=== PATIENT | female | born 1980 | race Caucasian/White ===

== ENCOUNTER 2024-10-31 21:56 | Emergency (ER) | payer MEDICARE, MEDICAID, SELFPAY ==
[2024-10-31 22:00] VITALS: BP 145/78; PULSE 98; RESP 17; TEMP 36.6; O2SAT 98; BMI 46.0
[2024-10-31 22:25] LABS: MANUAL DIFF FLAG NO
[2024-10-31 22:26] LABS: Basophils Percent Auto 0.2 % (0-2); Eosinophils Absolute Auto 0.1 X10*3/uL (0.0-0.4); Eosinophils Percent Auto 0.7 % (0-4); Hematocrit 38.5 % (37.0-47.0); Hemoglobin 13.8 g/dl (12.0-16.0); Imm Gran Abs Auto 0.04 X10*3/uL (0.00-0.03); Imm Gran Pct Auto 0.3 % (0.0-0.4); Lymphocytes Absolute Auto 2.1 X10*3/uL (1.2-4.9); Lymphocytes Percent Auto 15.4 % (20-40); Mean Corpuscular HGB Conc 35.8 g/dl (31.0-35.0); Mean Corpuscular Hemoglobin 30.5 pg (27.0-33.0); Mean Platelet Volume 10.2 fL (9.4-12.3); Monocytes Absolute Auto 0.7 X10*3/uL (0.1-1.2); Monocytes Percent Auto 5.2 % (2-11); Neutrophils Absolute Auto 10.8 x10*3/uL (2.0-8.3); Neutrophils Percent Auto 78.2 % (45-73); Platelet Count 251 X10*3/uL (160-400); Red Blood Count 4.53 X10*6/uL (4.20-5.50); White Blood Count 13.9 X10*3/uL (4.8-10.8)
[2024-10-31 22:30] LABS: UPreg QC Valid YES; Urine Pregnancy NEGATIVE (NEGATIVE)
[2024-10-31 22:43] LABS: Appearance Urine Turbid; Glucose Urine UA Negative (Negative); Leukocyte Esterase Urine Moderate (2+) (Negative); Nitrite Urine Positive (Negative); PH 5.5 (5.0-9.0); Specific Gravity - Urine >= 1.030 (1.005-1.025); UMIC TRIGGER UACC YES; Urine Blood Large (3+) (Negative); Urine Ketones Trace mg/dL (Negative); Urine Protein 300 (3+) mg/dL (Neg-Trace)
[2024-10-31 22:44] LABS: Alanine Aminotransferase 17 U/L (0-31); Albumin Level 3.9 g/dL (3.5-5.0); Alkaline Phosphatase 68 U/L (39-117); Anion Gap 11 (12-20); Aspartate Amino Transferase 15 U/L (5-31); Bilirubin Total 1.5 mg/dL (0.0-1.0); Blood Urea Nitrogen 12 mg/dL (9-16); Calcium 8.6 mg/dL (8.4-10.2); Carbon Dioxide 22 mmol/L (22-29); Chloride 109 mmol/L (96-108); Color Urine Dark Yellow; Creatinine Clr Calc Pharmacy 116.7; Estimated Glomerular Filt Rate > 60; Glucose Random 133 mg/dL (60-115); Potassium 3.2 mmol/L (3.3-5.1); Sodium 139 mmol/L (135-145); Total Protein 7.2 g/dL (6.5-8.0)
[2024-10-31 22:45] LABS: Bacteria Urine 4+ (None Seen); RBC Urine >20 /HPF (0-2); UACC Culture Trigger YES; WBC Urine >50 /HPF (0-5)
--- NOTE | 2024-11-01 02:03 | ED_ITS ---
HPI - Abdominal Pain General Chief Complaint: Abdominal Pain Stated Complaint: elevated wbc, abd pain Time Seen by Provider: 11/01/24 01:46 Source: patient Mode of arrival: ambulatory Limitations: no limitations History of Present Illness ED Provider: HPI narrative: Patient is obese complaining of lower abdominal pain for last 2 weeks patient's although spotting since 06/21 after she had delivered wanted to be sure she is not today no fever no chills no flank pain no nausea no vomiting Related Data Previous Rx's ?Medication ?Instructions ?Recorded cefuroxime axetil 500 mg tablet 500 mg PO BID 7 days #14 tabs 11/01/24 Allergies Allergy/AdvReac Type Severity Reaction Status Date / Time No Known Allergies Allergy Verified 10/31/24 22:02 Review of Systems Review of Systems Yes all other systems are reviewed and are negative [facility] Social History Social History Alcohol intake: never Smoked in Last 30 Days: No Use of substances other than those prescribed or required for medical reasons: No Advance Directives: No Advance Directives Information Provided: Yes Do you have a plan to hurt others: No Plan Patient : No Physical Exam ED Vital Signs: Vital Signs - 24 hr 10/31/24 22:00 Temperature 97.8 F Pulse Rate 98 Respiratory Rate 17 Blood Pressure 145/78 H Pulse Oximetry 98 Oxygen Delivery Method Room Air BMI result Body Mass Index 46.0 Appearance: Alert. Oriented X3. No acute distress. ENT: Pharynx normal. Oral Mucosa moist Neck: Normal inspection. Neck supple. CVS: Normal heart rate and rhythm. Pulses normal. Respiratory: No respiratory distress. Equal air entry bilateral, no wheezing/rales/rhonchi Abdomen: Soft and mild suprapubic discomfort. Bowel sounds are present, no mass palpable, no CVA tenderness Skin: Skin warm and dry. Normal skin color. Normal skin turgor. Extremities: No lower extremity edema. No calf tenderness Neuro: Oriented X 3. No motor deficit. Medical Decision Making Medical Decision Making MDM Narrative: Patient with nonspecific lower abdominal pain noticed to have UTI will prescribe cefuroxime she is not Lab Data [facility] Lab Attestation statement: I reviewed the patient's lab results. 10/31/24 22:19 10/31/24 22:19 Labs: Lab Results 10/31/24 Range/Units 22:19 WBC 13.9 H (4.8-10.8) X10*3/uL RBC 4.53 (4.20-5.50) X10*6/uL Hgb 13.8 (12.0-16.0) g/dl Hct 38.5 (37.0-47.0) % MCV 85.0 (80.0-98.0) fL MCH 30.5 (27.0-33.0) pg MCHC 35.8 H (31.0-35.0) g/dl RDW 13.0 (11.0-16.0) % Plt Count 251 (160-400) X10*3/uL MPV 10.2 (9.4-12.3) fL Immature Gran % (Auto) 0.3 (0.0-0.4) % Neut % (Auto) 78.2 H (45-73) % Lymph % (Auto) 15.4 L (20-40) % [place] % (Auto) 5.2 (2-11) % Eos % (Auto) 0.7 (0-4) % Baso % (Auto) 0.2 (0-2) % Lymph # (Auto) 2.1 (1.2-4.9) X10*3/uL [place] # (Auto) 0.7 (0.1-1.2) X10*3/uL Eos # (Auto) 0.1 (0.0-0.4) X10*3/uL Baso # (Auto) 0.0 (0.0-0.2) X10*3/uL Abs Immat Gran (auto) 0.04 H (0.00-0.03) X10*3/uL Absolute Neuts (auto) 10.8 H (2.0-8.3) x10*3/uL Absolute Nucleated RBC 0.000 (0.0-0.012) X10*3/uL Nucleated RBC % (auto) 0.0 (0.0-0.2) /100WBC Sodium 139 (135-145) mmol/L Potassium 3.2 L (3.3-5.1) mmol/L Chloride 109 H (96-108) mmol/L Carbon Dioxide 22 (22-29) mmol/L Anion Gap 11 L (12-20) BUN 12 (9-16) mg/dL Creatinine 0.75 (0.5-1.4) mg/dL Estim Creat Clear Calc 116.7 Estimated GFR > 60 Random Glucose 133 H (60-115) mg/dL Calcium 8.6 (8.4-10.2) mg/dL Total Bilirubin 1.5 H (0.0-1.0) mg/dL AST 15 (5-31) U/L ALT 17 (0-31) U/L Alkaline Phosphatase 68 (39-117) U/L Total Protein 7.2 (6.5-8.0) g/dL Albumin 3.9 (3.5-5.0) g/dL Urine Color Dark Yellow Urine Appearance Turbid Urine pH 5.5 (5.0-9.0) Ur Specific [place] >= 1.030 H (1.005-1.025) Urine Protein 300 (3+) H (Neg-Trace) mg/dL Urine Glucose (UA) Negative (Negative) mg/dL Urine Ketones Trace (Negative) mg/dL Urine Blood Large (3+) H (Negative) Urine Nitrite Positive H (Negative) Ur Leukocyte Esterase Moderate (2+) H (Negative) Urine RBC >20 H (0-2) /HPF Urine WBC >50 H (0-5) /HPF Ur Squamous Epith Cells 11-20 (0-2) /HPF Urine Bacteria 4+ (None Seen) Hyaline Casts 6-10 (0-2) /LPF Urine Test NEGATIVE (NEGATIVE) Medications Administered Discontinued Medications Generic Name Dose Route Start Last Admin Trade Name Lilia PRN Reason Stop Dose Admin Cefuroxime Axetil 500 mg 11/01/24 02:04 11/01/24 02:11 Cefuroxime Axetil 500 Mg Tablet PO 11/01/24 02:05 500 mg ONCE ONE Administration Discharge Plan Discharge Clinical Impression: UTI (urinary tract infection) Patient Disposition: Home, Self-Care Instructions: Urinary Tract Infection in Women (ED) Additional Instructions: Drink plenty of fluids Take antibiotic as prescribed Follow with your PCP if not better Prescriptions: New cefuroxime axetil 500 mg tablet 500 mg PO BID 7 Days Qty: 14 0RF Interventions: ED Discharge Assessment Last Done: 11/01/24 02:18 Discharge Date/Time: 11/01/24 02:19 Print Language: Korean
[2024-11-01] MEDS: cefuroxime axetiL 500 MG TABLET PO (02:11)
[2024-11-01 02:12] VITALS: BP 124/46; PULSE 90; RESP 16; TEMP 37.2; O2SAT 94
[2024-11-01 02:18] VITALS: BP 124/46; PULSE 90; RESP 16; TEMP 37.2; O2SAT 94
== END 2024-11-01 02:19 | disposition home or self-care (01) ==
PROVIDERS: Emergency Provider Internal Medicine; PCP Internal Medicine
DX: N39.0 Urinary tract infection, site not specified (principal); R10.30 Lower abdominal pain, unspecified
CPT/HCPCS: 36415; 80053; 81001; 81025; 85025; 87086; 99283; 99284

== ENCOUNTER 2025-03-22 13:41 | Emergency (ER) | payer MEDICARE, MEDICAID, SELFPAY ==
--- NOTE | ~2025-03-22 | CT_ITS ---
CLINICAL HISTORY: RLQ abd pain rad back. CT abdomen and pelvis with contrast Comparison: None Findings: No consolidation at the lung bases. Unremarkable gallbladder and bladder. Hepatic steatosis. Hepatomegaly, measuring 21.2 cm in craniocaudal dimension. Splenomegaly, measuring 13.2 cm in craniocaudal dimension. No hydronephrosis. There is a stone in the right renal pelvis measuring 9 x 6 x 8 mm. The kidneys are beginning to excrete contrast which limits evaluation for nephrolithiasis. Duplex left kidney. The other solid organs are unremarkable. Small hiatal hernia. No bowel wall thickening or dilation. A normal appendix is visualized measuring up to 5 mm, containing intraluminal air and without periappendiceal stranding. Colonic diverticulosis. No aneurysm. No calcified atherosclerotic disease. No lymphadenopathy. No ascites. No acute osseous abnormality. Impression: 9 mm stone in the right renal pelvis without hydronephrosis. Unremarkable gallbladder. Normal appendix. This document has been electronically signed by: Kelly Kaminski MD on 03/22/2025 17:37:15
[2025-03-22 13:45] VITALS: BP 114/78; PULSE 106; RESP 18; TEMP 36.4; O2SAT 96; BMI 45.7
--- NOTE | 2025-03-22 13:45 | ED_ITS ---
HPI - Abdominal Pain General Chief Complaint: Abdominal Pain Stated Complaint: abd pain, appendix? Time Seen by Provider: 03/22/25 15:47 Source: patient, RN notes reviewed and old records reviewed Mode of arrival: ambulatory History of Present Illness ED Provider: Polina Becker PA-C HPI narrative: 44-year-old female with past medical history obesity, presenting to the ED complaining of right-sided lower back pain radiating to periumbilical region x few days. Reports pain is intermittent with associated nausea and chills. Patient was seen at urgent Care [facility] and sent to ED for further evaluation. Denies vomiting, diarrhea, dysuria/hematuria, vaginal bleeding/discharge, fever Related Data Previous Rx's ?Medication ?Instructions ?Recorded cefuroxime axetil 500 mg tablet 500 mg PO BID 7 days #14 tabs 11/01/24 naproxen 500 mg tablet 500 mg PO BID PRN pain 10 days #20 03/22/25 tabs Allergies Allergy/AdvReac Type Severity Reaction Status Date / Time No Known Allergies Allergy Verified 03/22/25 13:46 Review of Systems Review of Systems Yes all other systems are reviewed and are negative Constitutional: Reports as per HPI [facility] Past Medical History Attestation statement: The following information was validated with the patient. Source: old records reviewed Social History Social History Alcohol intake: never Advance Directives: No Advance Directives Information Provided: No Physical Exam ED Vital Signs: Vital Signs - 24 hr 03/22/25 13:45 03/22/25 16:33 Temperature 97.5 F 100.4 F Pulse Rate 106 H 89 Respiratory Rate 18 20 Blood Pressure 114/78 116/76 Pulse Oximetry 96 97 Oxygen Delivery Method Room Air Room Air BMI result Body Mass Index 45.7 Const General: cooperative, healthy appearing and no acute distress Orientation/consciousness: patient oriented x3 Limitations: no limitations HENMT Head: Yes normal to inspection and Yes atraumatic Ears: hearing grossly normal bilaterally General nose exam: Normal external nose present Face and sinus: Yes normal facial exam Eyes General: appearance normal, both eyes and all related structures EOM: EOMs intact bilaterally Neck Neck: Yes normal visual inspection and Yes no meningeal signs Resp Effort & Inspection: normal respiratory effort and no respiratory distress Cardio Rate: regular rate GI Inspection: Yes normal to inspection Palpation (GI): Soft to palpation, Tenderness to palpation present (GI) in the RLQ; with no rebound tenderness, no guarding and not rigid General: Yes CVA tenderness on the right Back/Spine/Pelvis Back: CVA tenderness Skin Rashes: no rashes Wounds: no wounds Neuro General: patient oriented x3, tone normal and no meningeal signs Cranial nerves: Yes CN's II-XII intact bilaterally Gait exam (Neuro): Normal gait present Extrem General: Yes normal to inspection Course Course Course Narrative: This is an RME performed by Keturah Latham CNP: Additional HPI, ROS, PE not included below will be deferred to primary provider. Patient is a 44-year-old female presents emergency department for evaluation. She states that she has been experiencing mid thoracic back pain for a few days. Since yesterday she began experiencing periumbilical abdominal pain associated chills. She was evaluated at an urgent care prior to arrival, and was advised to come to the ER for further evaluation. Plan: Serum labs, urinalysis -1603--leukocytosis of 14.0. T bili mildly elevated to 1.7 (elevated priors). CRP mildly elevated >> lactic/blood cultures ordered > no evidence of organ dysfunction at this time -1720--lactic acid WNL. UA negative / not infected -1748-- CT abdomen pelvis w IV con Impression: 9 mm stone in the right renal pelvis without hydronephrosis. Unremarkable gallbladder. Normal appendix > on re-evaluation patient reports symptomatic improvement, denies any abdominal pain at present. CT results discussed, discussed needed close follow up with Urology. Discussed strict return precautions including persistent/worsening pain, gross hematuria, nausea, vomiting, fever to return to the ED immediately. Results discussed with patient including worrisome signs and symptoms and strict return precautions, and when to return to the emergency department. They verbalized understanding and feel safe for discharge at this time. Medical Decision Making Medical Decision Making MDM Narrative: 44-year-old female with past medical history obesity, presenting to the ED complaining of right-sided lower back pain radiating to periumbilical region x few days. On exam mildly tachycardic, NAD, nontoxic appearing, abdomen is soft with RLQ tenderness, no rebound or guarding, +R CVAT. Concern for renal stone vs pyelo vs appendicitis vs ? Cholecystitis/lithiasis. Lower suspicion for diverticulitis, pancreatitis or ischemic bowel at this time Low suspicion for severe sepsis Plan: Labs, UA, CT AP, IVF, pain control, re-evaluate Please refer to course for remaining clinical decision making, interpretation of labs/imaging results, and discussions with consultants and/or family members. Differential Diagnosis Differential Diagnoses: The differential diagnosis associated with the presentation includes As above Admission/Observation Consideration of admission/observation: Escalation of care including admission/observation considered Lab Data MDM Lab Attestation statement: I reviewed the patient's lab results. 03/22/25 14:06 03/22/25 14:06 Labs: Lab Results 03/22/25 03/22/25 03/22/25 Range/Units 14:06 16:29 16:42 WBC 14.0 H (4.8-10.8) X10*3/uL RBC 5.07 (4.20-5.50) X10*6/uL Hgb 15.4 (12.0-16.0) g/dl Hct 41.9 (37.0-47.0) % MCV 82.6 (80.0-98.0) fL MCH 30.4 (27.0-33.0) pg MCHC 36.8 H (31.0-35.0) g/dl RDW 13.1 (11.0-16.0) % Plt Count 243 (160-400) X10*3/uL MPV 10.0 (9.4-12.3) fL Immature Gran % (Auto) 0.4 (0.0-0.4) % Neut % (Auto) 84.1 H (45-73) % Lymph % (Auto) 9.5 L (20-40) % [place] % (Auto) 5.7 (2-11) % Eos % (Auto) 0.1 (0-4) % Baso % (Auto) 0.2 (0-2) % Lymph # (Auto) 1.3 (1.2-4.9) X10*3/uL [place] # (Auto) 0.8 (0.1-1.2) X10*3/uL Eos # (Auto) 0.0 (0.0-0.4) X10*3/uL Baso # (Auto) 0.0 (0.0-0.2) X10*3/uL Abs Immat Gran (auto) 0.05 H (0.00-0.03) X10*3/uL Absolute Neuts (auto) 11.8 H (2.0-8.3) x10*3/uL Absolute Nucleated RBC 0.000 (0.0-0.012) X10*3/uL Nucleated RBC % (auto) 0.0 (0.0-0.2) /100WBC Sodium 137 (135-145) mmol/L Potassium 3.9 D (3.3-5.1) mmol/L Chloride 105 (96-108) mmol/L Carbon Dioxide 24 (22-29) mmol/L Anion Gap 12 (12-20) BUN 12 (9-16) mg/dL Creatinine 0.70 (0.5-1.4) mg/dL Estim Creat Clear Calc 124.5 Estimated GFR > 60 Random Glucose 114 (60-115) mg/dL Lactic Acid 0.9 (0.5-2.0) mmol/L Calcium 9.0 (8.4-10.2) mg/dL Magnesium 1.7 (1.6-2.6) mg/dL Total Bilirubin 1.7 H (0.0-1.0) mg/dL AST 19 (5-31) U/L ALT 22 (0-31) U/L Alkaline Phosphatase 70 (39-117) U/L C-Reactive Protein 2.74 H (< or = 0.50) mg/dL Total Protein 7.6 (6.5-8.0) g/dL Albumin 4.4 (3.5-5.0) g/dL Lipase 9 (8-78) U/L Beta HCG, Quant < 2 mIU/mL Urine Color Dark Yellow Urine Appearance Turbid Urine pH 5.5 (5.0-9.0) Ur Specific [place] 1.025 (1.005-1.025) Urine Protein 30 (1+) H (Neg-Trace) mg/dL Urine Glucose (UA) Negative (Negative) mg/dL Urine Ketones Trace (Negative) mg/dL Urine Blood Negative (Negative) Urine Nitrite Negative (Negative) Ur Leukocyte Esterase Trace H (Negative) Urine RBC 0-2 (0-2) /HPF Urine WBC 0-5 (0-5) /HPF Ur Squamous Epith Cells 0-2 (0-2) /HPF Urine Bacteria Trace (None Seen) Hyaline Casts 0-2 (0-2) /LPF Urine Test (NEGATIVE) 03/22/25 Range/Units 16:43 WBC (4.8-10.8) X10*3/uL RBC (4.20-5.50) X10*6/uL Hgb (12.0-16.0) g/dl Hct (37.0-47.0) % MCV (80.0-98.0) fL MCH (27.0-33.0) pg MCHC (31.0-35.0) g/dl RDW (11.0-16.0) % Plt Count (160-400) X10*3/uL MPV (9.4-12.3) fL Immature Gran % (Auto) (0.0-0.4) % Neut % (Auto) (45-73) % Lymph % (Auto) (20-40) % [place] % (Auto) (2-11) % Eos % (Auto) (0-4) % Baso % (Auto) (0-2) % Lymph # (Auto) (1.2-4.9) X10*3/uL [place] # (Auto) (0.1-1.2) X10*3/uL Eos # (Auto) (0.0-0.4) X10*3/uL Baso # (Auto) (0.0-0.2) X10*3/uL Abs Immat Gran (auto) (0.00-0.03) X10*3/uL Absolute Neuts (auto) (2.0-8.3) x10*3/uL Absolute Nucleated RBC (0.0-0.012) X10*3/uL Nucleated RBC % (auto) (0.0-0.2) /100WBC Sodium (135-145) mmol/L Potassium (3.3-5.1) mmol/L Chloride (96-108) mmol/L Carbon Dioxide (22-29) mmol/L Anion Gap (12-20) BUN (9-16) mg/dL Creatinine (0.5-1.4) mg/dL Estim Creat Clear Calc Estimated GFR Random Glucose (60-115) mg/dL Lactic Acid (0.5-2.0) mmol/L Calcium (8.4-10.2) mg/dL Magnesium (1.6-2.6) mg/dL Total Bilirubin (0.0-1.0) mg/dL AST (5-31) U/L ALT (0-31) U/L Alkaline Phosphatase (39-117) U/L C-Reactive Protein (< or = 0.50) mg/dL Total Protein (6.5-8.0) g/dL Albumin (3.5-5.0) g/dL Lipase (8-78) U/L Beta HCG, Quant mIU/mL Urine Color Urine Appearance Urine pH (5.0-9.0) Ur Specific [place] (1.005-1.025) Urine Protein (Neg-Trace) mg/dL Urine Glucose (UA) (Negative) mg/dL Urine Ketones (Negative) mg/dL Urine Blood (Negative) Urine Nitrite (Negative) Ur Leukocyte Esterase (Negative) Urine RBC (0-2) /HPF Urine WBC (0-5) /HPF Ur Squamous Epith Cells (0-2) /HPF Urine Bacteria (None Seen) Hyaline Casts (0-2) /LPF Urine Test NEGATIVE (NEGATIVE) Independent Interpretation I performed an independent interpretation of an: CT Scan Radiology Impression Discussion of test interpretation with radiology: I have reviewed the radiologist's reading. External Record Review External record reviewed: Inpatient record, Office record, Outpatient record, Prior outpatient labs, Prior outpatient radiology, Primary care record and Outside ED record Tests considered The following testing was considered but not selected: As above Prescription Management I considered prescription management with: Pain Medication Chronic Conditions Patient?s care impacted by: Other Social Determinants Patient?s care significantly limited by Social Determinants of Health including: Other Social Determinant of Health Medications Administered Discontinued Medications Generic Name Dose Route Start Last Admin Trade Name Freq PRN Reason Stop Dose Admin Sodium Chloride 1,000 mls @ 999 mls/hr 03/22/25 16:00 03/22/25 17:48 Ns IV 03/22/25 17:00 Infused .[id number] MARIANNE Infusion Iohexol 100 ml 03/22/25 17:08 03/22/25 17:09 Iohexol 350 Mg/Ml 100 Ml Infus..Btl IV 03/22/25 17:09 100 ml ONCE ONE Administration Ketorolac Tromethamine 15 mg 03/22/25 16:02 03/22/25 16:21 Ketorolac Tromethamine 15 Mg/Ml Vial IVPUSH 03/22/25 16:03 15 mg ONCE ONE Administration Ondansetron HCl 4 mg 03/22/25 16:02 03/22/25 16:21 Ondansetron Hcl 4 Mg/2 Ml Vial IVPUSH 03/22/25 16:03 4 mg ONCE ONE Administration Discharge Plan Discharge Clinical Impression: Calculus of renal pelvis Patient Disposition: Home, Self-Care Instructions: Kidney Stones (ED) Additional Instructions: You have a 9 mm stone in your kidney. This is not currently causing any complications however this will unlikely pass on its own. You need to follow up with the urologist, specialist Call Sunday to make an appointment Naproxen as an anti-inflammatory pain medication, take with food. In addition take Tylenol If you develop persistent, worsening/unremitting pain, blood in your urine, fever, nausea/vomiting or you are unable to eat or drink return to the ED immediately Prescriptions: New naproxen 500 mg tablet 500 mg PO BID PRN (Reason: pain) 10 Days Qty: 20 0RF No Action cefuroxime axetil 500 mg tablet 500 mg PO BID 7 Days Qty: 14 0RF Referrals: [facility] [Provider Group] - 2 days Print Language: Tajik
[2025-03-22 14:10] LABS: MANUAL DIFF FLAG NO
[2025-03-22 14:12] LABS: Basophils Percent Auto 0.2 % (0-2); Eosinophils Percent Auto 0.1 % (0-4); Hematocrit 41.9 % (37.0-47.0); Hemoglobin 15.4 g/dl (12.0-16.0); Imm Gran Abs Auto 0.05 X10*3/uL (0.00-0.03); Imm Gran Pct Auto 0.4 % (0.0-0.4); Lymphocytes Absolute Auto 1.3 X10*3/uL (1.2-4.9); Lymphocytes Percent Auto 9.5 % (20-40); Mean Corpuscular HGB Conc 36.8 g/dl (31.0-35.0); Mean Corpuscular Hemoglobin 30.4 pg (27.0-33.0); Mean Corpuscular Volume 82.6 fL (80.0-98.0); Monocytes Absolute Auto 0.8 X10*3/uL (0.1-1.2); Monocytes Percent Auto 5.7 % (2-11); Neutrophils Absolute Auto 11.8 x10*3/uL (2.0-8.3); Neutrophils Percent Auto 84.1 % (45-73); Platelet Count 243 X10*3/uL (160-400); Red Blood Count 5.07 X10*6/uL (4.20-5.50); Red Cell Distribution Width 13.1 % (11.0-16.0)
[2025-03-22 14:25] LABS: Alanine Aminotransferase 22 U/L (0-31); Albumin Level 4.4 g/dL (3.5-5.0); Alkaline Phosphatase 70 U/L (39-117); Anion Gap 12 (12-20); Aspartate Amino Transferase 19 U/L (5-31); Bilirubin Total 1.7 mg/dL (0.0-1.0); Blood Urea Nitrogen 12 mg/dL (9-16); C Reactive Protein 2.74 mg/dL (< or = 0.50); Carbon Dioxide 24 mmol/L (22-29); Chloride 105 mmol/L (96-108); Creatinine Clr Calc Pharmacy 124.5; Estimated Glomerular Filt Rate > 60; Glucose Random 114 mg/dL (60-115); Lipase 9 U/L (8-78); Potassium 3.9 mmol/L (3.3-5.1); Sodium 137 mmol/L (135-145); Total Protein 7.6 g/dL (6.5-8.0)
[2025-03-22 16:01] LABS: Magnesium 1.7 mg/dL (1.6-2.6)
[2025-03-22] MEDS: ondansetron HCL 4 MG/2 ML VIAL IVPUSH (16:21)
[2025-03-22] MEDS: Ketorolac Tromethamine 15 MG/ML VIAL IVPUSH (16:21)
[2025-03-22] MEDS: 0.9 % Sodium Chloride 1,000 ML 999 ML IV (16:21)
[2025-03-22 16:26] LABS: HCG Quantitative < 2 mIU/mL
[2025-03-22 16:33] VITALS: BP 116/76; PULSE 89; RESP 20; TEMP 38; O2SAT 97
[2025-03-22 16:54] LABS: Appearance Urine Turbid; Color Urine Dark Yellow; Glucose Urine UA Negative (Negative); Leukocyte Esterase Urine Trace (Negative); Nitrite Urine Negative (Negative); PH 5.5 (5.0-9.0); Specific Gravity - Urine 1.025 (1.005-1.025); UMIC TRIGGER UACC YES; Urine Blood Negative (Negative); Urine Ketones Trace mg/dL (Negative); Urine Protein 30 (1+) mg/dL (Neg-Trace)
[2025-03-22 16:55] LABS: UPreg QC Valid YES; Urine Pregnancy NEGATIVE (NEGATIVE)
[2025-03-22 16:59] LABS: Lactic Acid 0.9 mmol/L (0.5-2.0)
[2025-03-22 17:03] LABS: Bacteria Urine Trace (None Seen); Hyaline Casts Urine 0-2 /LPF (0-2); RBC Urine 0-2 /HPF (0-2); Squamous Epithelial Cell Urine 0-2 /HPF (0-2); WBC Urine 0-5 /HPF (0-5)
[2025-03-22] MEDS: iohexoL 350 MG/ML 100 ML INFUS..BTL IV (17:09)
[2025-03-22 18:00] VITALS: BP 116/76; PULSE 89; RESP 20; TEMP 38; O2SAT 97
[2025-03-22 18:06] VITALS: BP 110/50; PULSE 83; RESP 20; TEMP 36.8; O2SAT 97
== END 2025-03-22 18:14 | disposition home or self-care (01) ==
PROVIDERS: Nurse Practitioner Family; Physician Assistant; Emergency Provider Emergency Medicine; PCP Internal Medicine
DX: N20.0 Calculus of kidney (principal); M54.50 Low back pain, unspecified; R10.2 Pelvic and perineal pain; R11.0 Nausea; Z79.899 Other long term (current) drug therapy
CPT/HCPCS: 36415; 74177; 80053; 81001; 81003; 81025; 83605; 83690; 83735; 84702; 85025; 86140; 87040; 96361; 96374; 96375; 99283; 99284; J1885; J2405; Q9967

== ENCOUNTER → 2025-03-22 16:02 | Outpatient (BNV) | payer MEDICARE, MEDICAID, SELFPAY | PROVIDERS: Emergency Provider Emergency Medicine; PCP Internal Medicine; Visit Provider Radiology Diagnostic Radiology | DX: N20.0 Calculus of kidney (principal) | CPT/HCPCS: 74177 ==